=== PATIENT | male | born 1980 ===

== ENCOUNTER 2017-10-18 18:57 | Emergency (ER) | payer SELFPAY ==
[2017-10-18 19:08] VITALS: BP 130/81; PULSE 80; RESP 18; TEMP 97.9; O2SAT 97
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
--- NOTE | 2017-10-19 10:40 | RAD ---
PROCEDURE: Right Foot Radiographs. HISTORY: pain and swelling 4th, 5th COMPARISON: None. FINDINGS: BONES: Any mildly comminuted fracture of the 5th proximal phalanx with proximal interphalangeal intra articular extension is present. A 3 to 4 mm lateral the fracture fragment is probably on 1 mm displaced laterally. No more significant appearing displacement suggested. JOINTS: 1st metatarsal joint space narrowing - minimal osteoarthrosis SOFT TISSUES: Normal. OTHER FINDINGS: None. IMPRESSION: Fifth digit proximal phalangeal mildly comminuted fracture with proximal inter phalangeal intra-articular extension. No displacement greater than 1 mm appreciated No dislocation
== END 2017-10-18 21:10 | disposition home or self-care (01) ==
LOC: C.ER 18:57
DX: S92.534A Nondisplaced fracture of distal phalanx of right lesser toe(s), initial encounter for closed fracture (principal); Y09 Assault by unspecified means

== ENCOUNTER 2017-10-27 23:18 | Emergency (ER) | payer SELFPAY ==
[2017-10-27 23:41] VITALS: O2SAT 97
[2017-10-27] MEDS ORDERED: Sodium Chloride 0.9% 1,000 ML IV ONE (23:53)
--- NOTE | 2017-10-28 00:09 | C.PDOC ---
History Of Present Illness 37 y/o male with a PMHx of gastritis, presents to the ED complaining of epigastric pain and nausea for the past week. Patient states he is barely able to tolerate solids. No vomiting, fever, or diarrhea. Patient has been taking zantac daily without significant improvement. Time Seen by Provider: 10/27/17 23:49 Chief Complaint (Nursing): Abdominal Pain History Per: Patient History/Exam Limitations: no limitations Onset/Duration Of Symptoms: Days Current Symptoms Are (Timing): Still Present Associated Symptoms: Loss Of Appetite Past Medical History Reviewed: Historical Data, Nursing Documentation, Vital Signs Vital Signs: Last Vital Signs Temp 97.8 F 10/27/17 23:37 Pulse 100 H 10/27/17 23:37 Resp 14 10/27/17 23:37 BP 107/74 10/27/17 23:37 Pulse Ox 97 10/28/17 00:11 - Medical History PMH: Asthma, Gastritis Other Surgeries: cardiac catheterization - [facility] Procedures LEFT HEART CARDIAC CATH (10/24/13) LT HEART ANGIOCARDIOGRAM (10/24/13) Family History: States: Unknown Family Hx - Social History Hx Tobacco Use: Yes Hx Alcohol Use: Yes (social) Hx Substance Use: Yes - Immunization History Hx Tetanus Toxoid Vaccination: Yes Hx Influenza Vaccination: No Hx Pneumococcal Vaccination: No Review Of Systems Constitutional: Negative for: Fever Gastrointestinal: Positive for: Abdominal Pain, Other (loss of appetite). Negative for: Nausea, Vomiting, Diarrhea Physical Exam - Physical Exam Appears: Non-toxic, No Acute Distress, Other (appears mildly dehydrated) Skin: Normal Color, Warm, Dry Head: Atraumatic, Normacephalic Eye(s): bilateral: Normal Inspection, PERRL, EOMI Oral Mucosa: Dry Neck: Normal ROM, Supple Chest: Symmetrical Cardiovascular: Rhythm Regular, No Murmur Respiratory: Normal Breath Sounds, No Rales, No Rhonchi, No Wheezing Gastrointestinal/Abdominal: Soft, Tenderness (to the epigastrium), No Guarding, No Rebound Extremity: Bilateral: Atraumatic, Normal Color And Temperature, Normal ROM Neurological/Psych: Oriented x3, Normal Speech ED Course And Treatment - Laboratory Results Result Diagrams: 10/27/17 23:55 10/27/17 23:55 Lab Interpretation: Normal O2 Sat by Pulse Oximetry: 97 (RA) Pulse Ox Interpretation: Normal Progress Note: Ordered blood work and urinalysis. Patient given IVF hydration, 20 mg Pepcid, and 40 mg Protonix. Reevaluation Time: 00:40 Reassessment Condition: Improved Disposition Counseled Patient/Family Regarding: Studies Performed, Diagnosis, Need For Followup, Rx Given - Disposition Referrals: [facility] [Outside] Disposition: HOME/ ROUTINE Disposition Time: 01:00 Condition: IMPROVED Prescriptions: Esomeprazole Magnesium [Nexium] 40 mg PO DAILY #14 capsule. Instructions: Gastritis, Watts Diet Forms: [employer] (Guatemalan) - Clinical Impression Clinical Impression: Gastritis - Scribe Statement The provider has reviewed the documentation as recorded by the Scribe (Mary Carrington) Provider Attestation: All medical record entries made by the Scribe were at my direction and personally dictated by me. I have reviewed the chart and agree that the record accurately reflects my personal performance of the history, physical exam, medical decision making, and the department course for this patient. I have also personally directed, reviewed, and agree with the discharge instructions and disposition.
[2017-10-28 00:12] LABS: BASO # 0.1 K/uL (0.0-0.2); BASO % 0.9 % (0.0-2.0); EOS % 0.3 % (0.0-4.0); HEMOGLOBIN 15.7 g/dL (12.0-18.0); LYMPH # 1.8 K/uL (1.0-4.3); LYMPH % 22.4 % (20.0-40.0); MEAN CELL VOLUME 96.6 fL (80.0-94.0); MEAN CORPUSCULAR HEMOGLOBIN 34.1 pg (27.0-31.0); MEAN CORPUSCULAR HGB CONC 35.3 g/dL (33.0-37.0); MEAN PLATELET VOLUME 7.1 fL (7.2-11.7); MONO # 0.8 K/uL (0.0-0.8); MONO % 10.1 % (0.0-10.0); NEUT # 5.4 K/uL (1.8-7.0); NEUT % 66.3 % (50.0-75.0); NRBC % 0.1 % (0.0-2.0); RBC 4.61 Mil/uL (4.40-5.90); RED CELL DISTRIBUTION WIDTH 11.7 % (11.5-14.5); WHITE BLOOD COUNT 8.1 K/uL (4.8-10.8)
[2017-10-28] MEDS ORDERED: Sodium Chloride 0.9% 1,000 ML ONE (00:12)
[2017-10-28 00:21] LABS: ALB/GLOB RATIO 1.3 (1.0-2.1); ALBUMIN 4.4 g/dL (3.5-5.0); ALT/SGPT 22 U/L (21-72); AST/SGOT 20 U/L (17-59); BLOOD UREA NITROGEN 12 mg/dL (9-20); CALCIUM 9.4 mg/dl (8.6-10.4); GFR AFRICAN-AMERICAN > 60; GFR NON-AFRICAN AMERICAN > 60; LIPASE 91 U/L (23-300)
[2017-10-28 01:02] VITALS: BP 114/64; PULSE 69; RESP 20; TEMP 98.6
== END 2017-10-28 01:03 | disposition home or self-care (01) ==
LOC: C.ER 23:18
DX: K29.70 Gastritis, unspecified, without bleeding (principal)
CPT/HCPCS: 80053; 83690; 85025; 96361; 96374; 96375; 99284; C9113; J7040

== ENCOUNTER 2018-08-03 11:38 | Emergency (ER) | payer OTHER ==
[2018-08-03 13:18] LABS: SQUAMOUS EPITHIAL < 1 /hpf (0-5); URINE BILIRUBIN NEGATIVE (NEGATIVE); URINE BLOOD NEGATIVE (NEGATIVE); URINE CLARITY Clear (Clear); URINE COLOR Yellow (YELLOW); URINE GLUCOSE (UA) NORMAL (Normal); URINE LEUKOCYTE ESTERASE NEG Leu/uL (Negative); URINE PROTEIN NEGATIVE (NEGATIVE); URINE UROBILINOGEN NORMAL mg/dL (0.2-1.0)
[2018-08-03] MEDS ORDERED: Sodium Chloride 0.9% 1,000 ML IV ONE (13:44)
[2018-08-03] MEDS ORDERED: Sodium Chloride 0.9% 1,000 ML ONE (14:02)
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
[2018-08-03 14:05] LABS: BASO % 0.7 % (0.0-2.0); EOS # 0.1 K/uL (0.0-0.7); EOS % 1.5 % (0.0-4.0); LYMPH # 1.6 K/uL (1.0-4.3); LYMPH % 25.9 % (20.0-40.0); MEAN CELL VOLUME 96.6 fL (80.0-94.0); MEAN CORPUSCULAR HEMOGLOBIN 33.3 pg (27.0-31.0); MEAN CORPUSCULAR HGB CONC 34.5 g/dL (33.0-37.0); MEAN PLATELET VOLUME 7.5 fL (7.2-11.7); MONO # 0.5 K/uL (0.0-0.8); MONO % 8.6 % (0.0-10.0); NEUT % 63.3 % (50.0-75.0); NRBC % 0.2 % (0.0-2.0); RBC 4.82 Mil/uL (4.40-5.90); RED CELL DISTRIBUTION WIDTH 11.7 % (11.5-14.5); WHITE BLOOD COUNT 6.3 K/uL (4.8-10.8)
[2018-08-03 14:30] LABS: ALB/GLOB RATIO 1.6 (1.0-2.1); ALBUMIN 4.9 g/dL (3.5-5.0); ALT/SGPT 24 U/L (21-72); AST/SGOT 28 U/L (17-59); BLOOD UREA NITROGEN 11 mg/dL (9-20); CALCIUM 9.5 mg/dl (8.6-10.4); GFR NON-AFRICAN AMERICAN > 60; LIPASE 65 U/L (23-300)
--- NOTE | 2018-08-03 14:34 | RAD ---
Date of service: 08/03/2018 PROCEDURE: Radiographs of the chest and abdomen (obstructive series) HISTORY: vomiting COMPARISON: Chest radiographs . TECHNIQUE: AP radiograph of the chest, with upright and supine radiographs of the abdomen. FINDINGS: CHEST: Lungs: Clear. Cardiovascular: Normal size heart. No pulmonary vascular congestion. No aortic atherosclerotic calcification present Pleura: No pleural fluid. No pneumothorax. Other findings: None. ABDOMEN AND PELVIS: Bowel: Unremarkable bowel gas pattern. No evidence of mechanical obstruction. Free air: None. Bones: Unremarkable. Other findings: None. IMPRESSION: Unremarkable radiographs of chest and abdomen. No evidence of mechanical bowel obstruction.
[2018-08-03 15:24] VITALS: BP 141/87; PULSE 85; RESP 18; TEMP 99; O2SAT 100
== END 2018-08-03 15:20 | disposition home or self-care (01) ==
LOC: C.ER 11:38
DX: R10.13 Epigastric pain (principal); Z72.0 Tobacco use
CPT/HCPCS: 74022; 80053; 81001; 83690; 84484; 85025; 93005; 96361; 96374; 96375; 99285; J1885; J2405; J7030